=== PATIENT | male | born 1955 | race Caucasian/White ===

== ENCOUNTER 2024-07-13 10:34 | Observation (INO) | payer MEDICARE ==
[2024-07-13 12:05] LABS: Partial Thromboplastin Time 25.6 sec (22.0-30.0); Prothrombin Time 11.1 sec (10.0-12.5)
[2024-07-13 12:08] LABS: HCT 44.7 % (39.0-53.0); HGB 15.4 gm/dL (13.0-17.5); MCH 32.7 pg (25.0-35.0); MCHC 34.4 g/dL (31.0-37.0); Mean Platelet Volume 7.7; Platelet Count 218 k/uL (150-450); RBC 4.71 m/uL (4.30-5.90); RDW 12.6 % (11.5-15.5)
--- NOTE | 2024-07-13 12:14 | XR ---
EXAMINATION TYPE: XR chest 2V DATE OF EXAM: 07/13/2024 11:28 AM COMPARISON: None CLINICAL INDICATION: Male, 69 years old with history of Chest Pain; TECHNIQUE: XR chest 2V Frontal and lateral views of the chest. FINDINGS: Lungs/Pleura: There is no evidence of pleural effusion, focal consolidation, or pneumothorax. Pulmonary vascularity: Unremarkable. Heart/mediastinum: Cardiomediastinal silhouette is unremarkable. Musculoskeletal: No acute osseous pathology. IMPRESSION: No acute cardiopulmonary disease/process. [facility], , 07/13/2024 12:12 PM
[2024-07-13 12:19] LABS: Eosinophils # (M) 0.08 k/uL (0-0.7); Neutrophils # (M) 5.12 k/uL (1.3-7.7); Neutrophils % (M) 64 %; Nucleated Red Blood Cells 0 /100 WBC (0-0); Total Cells Counted 100
[2024-07-13 12:21] LABS: RBC Morphology Normal
[2024-07-13 12:33] LABS: ALT 36 U/L (4-49); African American GFR (CKD) >90 (>60 ml/min/1.73 sqM); Anion Gap 10 mmol/L; Blood Urea Nitrogen 13 mg/dL (9-20); Calcium 9.1 mg/dL (8.4-10.2); Carbon Dioxide 23 mmol/L (22-30); Chloride 103 mmol/L (98-107); Glucose 98 mg/dL (74-99); Non-African American GFR(CKD) 81 (>60 ml/min/1.73 sqM); Sodium 136 mmol/L (137-145); Total Bilirubin 0.9 mg/dL (0.2-1.3)
[2024-07-13 12:41] LABS: NT-Pro-B-Type Natriuretic Pept 28 pg/mL
[2024-07-13 12:45] LABS: Potassium 4.6 mmol/L (3.5-5.1); Total Protein 8.2 g/dL (6.3-8.2)
[2024-07-13 12:46] LABS: AST 41 U/L (17-59); Albumin 4.5 g/dL (3.5-5.0); Alkaline Phosphatase 73 U/L (38-126)
--- NOTE | 2024-07-13 14:54 | CT ---
EXAMINATION TYPE: CT chest angio for PE DATE OF EXAM: 07/13/2024 2:15 PM COMPARISON: Chest radiograph from same day. CLINICAL INDICATION: Male, 69 years old with history of chest pain, elevated d-dimer; Elevated D-dime r and Chest pain TECHNIQUE/CONTRAST: CTA scan of the thorax is performed without and with IV Contrast, patient injected with 100 ml mL of Isovue 300, MIP images are created and reviewed these are created on a separate workstation.. CT DLP: 352.4 mGycm, Automated exposure control for dose reduction was used. FINDINGS: Lungs/Pleura: No evidence of focal consolidation, pleural effusion or pneumothorax. Airway: Large airways are patent. Heart: Heart is within normal limits for size. Atherosclerosis of the arterial vasculature. Vasculature: Multiple filling defects are seen in the motion limited exam particularly in the lung ba ses.e example includes 401 image 88 in the left lower lung and image 111 in the right lung base. Agai n evaluation limited due to phase of contrast and patient respiratory motion. On coronal imaging poss ibly series 402 image 109 on the righte The pulmonary artery is of normal size. Mediastinum: No gross evidence of adenopathy. Musculoskeletal: No acute osseous abnormalities Soft Tissues/lymph nodes: Unremarkable. Lower neck: No significant findings. Upper Abdomen: No significant findings. IMPRESSION: Motion limited exam with bilateral filling defects thought to be present. No evidence of right heart strain. Consider repeat exam. [facility], , 07/13/2024 2:52 PM
[2024-07-13] MEDS ORDERED: HEPARIN SODIUM 1,000 UN/ML (10ML VL) IV PRN (15:21)
[2024-07-13] MEDS ORDERED: NALOXONE 0.4 MG/ML 1 ML VIAL IV PRN (15:21)
--- NOTE | 2024-07-13 15:21 | ED ---
Chest Pain HPI - General Chief Complaint: Chest Pain Stated Complaint: chest pain,cough Time Seen by Provider: 07/13/24 10:58 Source: patient Mode of arrival: ambulatory Limitations: no limitations - History of Present Illness Initial Comments: 69-year-old male with no reported past medical history who presents to the emergency department with pleuritic chest pain. States that he has had the pain for 1 week. It is dull in nature but worse with inspiration. He has had a nonproductive cough. No history of cardiac disease. No history of COPD or asthma. He denies any fevers or chills. He did recently travel home from the [facility] 3 weeks ago. No history of DVT or PE. No calf pain or swelling. He has never had a stress test. He has been on antibiotics for a back abscess but takes no other medications. Denies any abdominal pain. No changes in his bowel or bladder habits. No other alleviating, precipitating modifying factors - Related Data Previous Rx's Medication Instructions Recorded Apixaban [Eliquis Starter Pack 5 - 10 mg PO DIRECTED 30 Days 07/14/24 (for VTE)] #1 each Allergies Allergy/AdvReac Type Severity Reaction Status Date / Time No Known Allergies Allergy Verified 07/13/24 13:08 Review of Systems ROS Statement: Those systems with pertinent positive or pertinent negative responses have been documented in the HPI. ROS Other: All systems not noted in ROS Statement are negative. Past Medical History Past Medical History: No Reported History Past Surgical History: No Surgical Hx Reported Smoking Status: Never smoker General Exam Limitations: no limitations General appearance: alert, in no apparent distress Head exam: Present: atraumatic, normocephalic, normal inspection Eye exam: Present: normal appearance, PERRL, EOMI. Absent: scleral icterus, conjunctival injection, periorbital swelling ENT exam: Present: normal exam, mucous membranes moist Neck exam: Present: normal inspection. Absent: tenderness, meningismus, lymphadenopathy Respiratory exam: Present: normal lung sounds bilaterally. Absent: respiratory distress, wheezes, rales, rhonchi, stridor Cardiovascular Exam: Present: regular rate, normal rhythm, normal heart sounds. Absent: systolic murmur, diastolic murmur, rubs, gallop, clicks GI/Abdominal exam: Present: soft, normal bowel sounds. Absent: distended, tenderness, guarding, rebound, rigid Extremities exam: Present: normal inspection, full ROM, normal capillary refill. Absent: tenderness, pedal edema, joint swelling, calf tenderness Back exam: Present: normal inspection Neurological exam: Present: alert, oriented X3, CN II-XII intact Psychiatric exam: Present: normal affect, normal mood Skin exam: Present: warm, dry, intact, normal color. Absent: rash Course Vital Signs 07/13/24 07/13/24 07/13/24 10:39 13:22 16:04 Temperature 97.3 F L Pulse Rate 83 75 68 Respiratory 16 18 18 Rate Blood Pressure 129/86 140/95 132/81 O2 Sat by Pulse 98 96 99 Oximetry 07/13/24 07/14/24 07/14/24 21:16 01:05 03:24 Temperature Pulse Rate 79 80 67 Respiratory 16 18 18 Rate Blood Pressure 132/81 127/81 O2 Sat by Pulse 96 98 99 Oximetry 07/14/24 07/14/24 07/14/24 05:17 07:21 12:25 Temperature 98.4 F Pulse Rate 87 72 70 Respiratory 18 18 18 Rate Blood Pressure 99/55 129/69 129/75 O2 Sat by Pulse 98 100 98 Oximetry 07/14/24 15:14 Temperature 97.6 F Pulse Rate 64 Respiratory 18 Rate Blood Pressure 129/75 O2 Sat by Pulse 98 Oximetry Chest Pain MDM - MDM Was pt. sent in by a medical professional or institution (NICOLE Morel, WHARF OPERATOR, urgent care, hospital, or halfway...) When possible be specific @ -No Did you speak to anyone other than the patient for history (EMS, parent, family, police, friend...)? What history was obtained from this source @ -No Did you review nursing and triage notes (agree or disagree)? Why? @ -I reviewed and agree with nursing and triage notes Were old charts reviewed (outside hosp., previous admission, EMS record, old EKG, old radiological studies, urgent care reports/EKG's, halfway records)? Report findings @ -No old charts were reviewed Differential Diagnosis (chest pain, altered mental status, abdominal pain women, abdominal pain men, vaginal bleeding, weakness, fever, dyspnea, syncope, headache, dizziness, GI bleed, back pain, seizure, CVA, palpatations, mental health, musculoskeletal)? @ -Differential Chest Pain: Stable Angina, Unstable Angina, STEMI, NSTEMI Aortic Dissection, Pneumothorax, Musculoskeletal, Esophageal Spasm GERD, Cholecystitis, Pancreatitis, Zoster, this is not meant to be an all-inclusive list. EKG interpreted by me (3pts min.). @ -Yes and demonstrates sinus rhythm with a rate of 79. WV interval 165. QRS 102. QTc of 415. No acute ST segment elevations or depressions X-rays interpreted by me (1pt min.). @ -Yes and demonstrates no acute process CT interpreted by me (1pt min.). @ -Yes and demonstrates possible bilateral PEs however contrast timing is poor U/S interpreted by me (1pt. min.). @ -None done What testing was considered but not performed or refused? (CT, X-rays, U/S, labs)? Why? @ -Spoke with the patient about repeating CT scan however he does not want to do this What meds were considered but not given or refused? Why? @ -None Did you discuss the management of the patient with other professionals (professionals i.e. , PA, WHARF OPERATOR, lab, RT, psych nurse, social organization professor, hospitality recruiter, teacher, county health officer, director case)? Give summary @ -Discussed the case with dr cho who accepted the admission Was smoking cessation discussed for >3mins.? @ -No Was critical care preformed (if so, how long)? @ -35 minutes for management of heparin drip Were there social determinants of health that impacted care today? How? (Homelessness, low income, unemployed, alcoholism, drug addiction, transportation, low edu. Level, literacy, decrease access to med. care, custodial, rehab)? @ -No Was there de-escalation of care discussed even if they declined (Discuss DNR or withdrawal of care, Hospice)? DNR status @ -No What co-morbidities impacted this encounter? (DM, HTN, Smoking, COPD, CAD, Cancer, CVA, ARF, Chemo, Hep., AIDS, mental health diagnosis, sleep apnea, morbid obesity)? @ -None Was patient admitted / discharged? Hospital course, mention meds given and route, prescriptions, significant lab abnormalities, going to OR and other pertinent info. @ -Upon arrival patient seen and evaluated in room 20. Thorough history and physical exam was performed. IV was established and laboratory studies are conducted. Chest x-ray was performed. Patient does have elevated D-dimer and therefore I did send the patient for a CT. Demonstrates possible PEs however this is a bad contrast bolus timing. I did discuss the case with the radiologist who feels that there is high concern for PE. I will heparinize the patient and admit for pulmonology consultation. Patient was agreeable to this. Patient admitted to Dr. Cho in stable condition Undiagnosed new problem with uncertain prognosis? @ -No Drug Therapy requiring intensive monitoring for toxicity (Heparin, Nitro, Insulin, Cardizem)? @ -Heparin Were any procedures done? @ -No Diagnosis/symptom? @ -Acute chest pain, possible bilateral PE Acute, or Chronic, or Acute on Chronic? @ -Acute Uncomplicated (without systemic symptoms) or Complicated (systemic symptoms)? @ -Complicated Side effects of treatment? @ -No Exacerbation, Progression, or Severe Exacerbation? @ -No Poses a threat to life or bodily function? How? (Chest pain, [place], [place], pneumonia, PE, COPD, DKA, ARF, appy, cholecystitis, CVA, Diverticulitis, Homicidal, Suicidal, threat to staff... and all critical care pts) @ -Yes as patient possibly has PEs Disposition Clinical Impression: Chest pain, Pulmonary embolism Disposition: ADMITTED IP TO THIS [facility] Condition: Stable Is patient prescribed a controlled substance at d/c from ED?: No Time of Disposition: 15:20 Decision to Admit Reason: Admit from EC Decision Date: 07/13/24 Decision Time: 15:20
[2024-07-13] MEDS: HEPARIN SODIUM 1,000 UN/ML (10ML VL) IV ONE (16:07)
[2024-07-13] MEDS: HEPARIN SOD,PORK IN 0.45% NACL 25,000 UNIT in 0.45% NACL 1 250ML.BAG IV SCH (16:10)
--- NOTE | 2024-07-13 16:54 | US ---
EXAMINATION TYPE: US venous doppler duplex LE DATE OF EXAM: 07/13/2024 4:38 PM COMPARISON: NONE CLINICAL INDICATION: Male, 69 years old with history of suspected pulmonary embolisms; Not on blood t hinners. PE. Recent travel around the world TECHNIQUE: The lower extremity deep venous system is examined utilizing real time linear array sonog sang with graded compression, color doppler sonography, and spectral doppler. SIDE PERFORMED: Bilateral FINDINGS: VESSELS IMAGED: Common Femoral Vein Deep Femoral Vein Greater Saphenous Vein * Femoral Vein Popliteal Vein Small Saphenous Vein * Proximal Calf Veins (* superficial vessels) Right Leg: Negative for DVT, Color Doppler imaging shows patency of the vessels. Spectral waveforms are within normal limits. Left Leg: Negative for DVT, Color Doppler imaging shows patency of the vessels. Spectral waveforms a re within normal limits. IMPRESSION: Bilateral lower extremity ultrasound negative for deep venous thrombosis. [facility], , 07/13/2024 4:52 PM
--- NOTE | 2024-07-13 17:08 | HP ---
HISTORY AND PHYSICAL CHIEF COMPLAINT: Chest discomfort and shortness of breath. 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 The patient apparently had a 24-hour flight and rest included. The patient is complaining of chest discomfort and shortness of breath, especially at night with increasing respiration and the patient had D-dimer elevated to 1.44 and a chest CTA showed bilateral pulmonary embolism. There is no history of any fever, rigors, or chills at this time. PAST MEDICAL HISTORY: No significant cardiovascular illness. MEDICATIONS: None. ALLERGIES: None. FAMILY HISTORY: No history of heart disease or strokes in the family. SOCIAL HISTORY: No history of smoking, or alcohol. REVIEW OF SYSTEMS: A 14-point review of systems is negative except as mentioned earlier. PHYSICAL EXAMINATION: VITAL SIGNS: Pulse is 75, blood pressure 140/94, respirations 18. HEENT: Conjunctivae normal. CARDIOVASCULAR: S1, S2. RESPIRATIONS: A few scattered rhonchi. ABDOMEN: Soft. NERVOUS SYSTEM: Nonfocal. LABORATORY DATA: D-dimer 1.45. Otherwise, other labs noted. ASSESSMENT: 1. Chest pain, possible bilateral pulmonary embolism. 2. Elevated D-dimer. 3. Mild hyponatremia. RECOMMENDATIONS AND DISCUSSION: This is a 69-year-old gentleman, who presented with multiple complex medical issues, we will monitor the patient closely. Continue the current management and continue symptomatic treatment. I would recommend IV heparin and ultrasound of the legs to rule out DVT. Otherwise, IV heparin and pulmonary consultation. I would also recommend anticoagulation. Prognosis guarded. Further recommendations to follow. MMODL / IJN: [id number] /
[2024-07-14 01:35] VITALS: RESP 18
[2024-07-14 04:32] LABS: HCT 41.9 % (39.0-53.0); HGB 13.9 gm/dL (13.0-17.5); MCH 31.8 pg (25.0-35.0); MCHC 33.2 g/dL (31.0-37.0); MCV 95.8 fL (80.0-100.0); Mean Platelet Volume 7.5; Platelet Count 199 k/uL (150-450); RBC 4.38 m/uL (4.30-5.90); RDW 12.7 % (11.5-15.5); WBC 7.1 k/uL (3.8-10.6)
[2024-07-14 04:42] LABS: Eosinophils # (M) 0.43 k/uL (0-0.7); Lymphocytes # (M) 2.56 k/uL (1.0-4.8); Monocytes # (M) 0.28 k/uL (0-1.0); Neutrophils # (M) 3.83 k/uL (1.3-7.7); Neutrophils % (M) 54 %; Nucleated Red Blood Cells 0 /100 WBC (0-0); Total Cells Counted 100
[2024-07-14 05:10] LABS: African American GFR (CKD) 83 (>60 ml/min/1.73 sqM); Anion Gap 6 mmol/L; Blood Urea Nitrogen 15 mg/dL (9-20); Calcium 8.7 mg/dL (8.4-10.2); Carbon Dioxide 24 mmol/L (22-30); Chloride 105 mmol/L (98-107); Glucose 110 mg/dL (74-99); Non-African American GFR(CKD) 72 (>60 ml/min/1.73 sqM); Potassium 4.4 mmol/L (3.5-5.1); Sodium 135 mmol/L (137-145)
[2024-07-14] MEDS: PANTOPRAZOLE 40 MG TABLET PO SCH (07:54)
[2024-07-14 12:31] VITALS: BP 129/75
--- NOTE | 2024-07-14 12:32 | CA ---
Transthoracic Echo Report Name: Raz Cabrrea Age: 69 Gender: M : 1955 Exam Date: 07/14/2024 09:12 Exam Location: [place] [facility] Ht (in): 72 Wt (lb): 175 Ordering Physician: Christian Bruce MD Attending/Referring Phys: Tip Fixer Litzy Mccomrack RDCS Procedure CPT: Indications: stroke Cardiac Hx: Technical Quality: Good Contrast 1: Total Dose (mL): Contrast 2: Total Dose (mL): MEASUREMENTS (Male / Female) Normal Values 2D ECHO LV Diastolic Diameter PLAX 4.3 cm 4.2 - 5.9 / 3.9 - 5.3 cm LV Systolic Diameter PLAX 2.3 cm IVS Diastolic Thickness 1.3 cm 0.6 - 1.0 / 0.6 - 0.9 cm LVPW Diastolic Thickness 1.2 cm 0.6 - 1.0 / 0.6 - 0.9 cm LV Relative Wall Thickness 0.6 RV Internal Dim ED PLAX 2.2 cm LA Systolic Diameter LX 3.9 cm 3.0 - 4.0 / 2.7 - 3.8 cm LV Diastolic Volume MOD BP 52.3 cm??? 67 - 155 / 56 - 104 cm??? LV Systolic Volume MOD BP 22.3 cm??? 22 - 58 / 19 - 49 cm??? LV Ejection Fraction MOD BP 57.4 % >= 55 % LV Cardiac Index MOD BP 1105.9 cm???/min???m??? LV Diastolic Volume MOD 4C 47.9 cm??? LV Systolic Volume MOD 4C 19.0 cm??? LV Ejection Fraction MOD 4C 60.4 % LV Cardiac Index MOD 4C 1065.2 cm???/min???m??? LV Diastolic Length 4C 6.5 cm LV Systolic Length 4C 6.0 cm LV Diastolic Volume MOD 2C 49.5 cm??? LV Systolic Volume MOD 2C 23.9 cm??? LV Ejection Fraction MOD 2C 51.7 % LV Cardiac Index MOD 2C 942.9 cm???/min???m??? LV Diastolic Length 2C 7.6 cm LV Systolic Length 2C 6.7 cm LA Volume 53.7 cm??? 18 - 58 / 22 - 52 cm??? LA Volume Index 26.7 cm???/m??? 16 - 28 cm???/m??? M-MODE Aortic Root Diameter MM 2.8 cm LA Systolic Diameter MM 2.8 cm LA Ao Ratio MM 1.0 AV Cusp Separation MM 1.9 cm DOPPLER AI Peak Velocity 372.7 cm/s AI Peak Gradient 55.6 mmHg AI Pressure Half Time 857.2 ms MV Area PHT 2.9 cm??? Mitral E Point Velocity 72.1 cm/s Mitral A Point Velocity 75.5 cm/s Mitral E to A Ratio 1.0 MV Deceleration Time 261.7 ms TR Peak Velocity 187.1 cm/s TR Peak Gradient 14.0 mmHg FINDINGS Left Ventricle Left ventricular ejection fraction is estimated at 60-65 %. Mildly increased septal wall thickness. Left ventricular cavity size normal. No obvious regional wall motion abnormalities. Right Ventricle Normal right ventricular size and function. Right ventricular systolic pressure within normal limits. Right Atrium Mild right atrial dilatation. Left Atrium Mild left atrial dilatation. Mitral Valve Myxomatous (redundant) mitral valve. [id number] mitral regurgitation. No mitral stenosis. Aortic Valve Trileaflet aortic valve. No aortic stenosis. Mild aortic regurgitation. Tricuspid Valve Structurally normal tricuspid valve. Mild tricuspid regurgitation. No tricuspid stenosis. Pulmonic Valve Structurally normal pulmonic valve. Trace pulmonic regurgitation. No pulmonic stenosis. Pericardium No pericardial or pleural effusion. Aorta Normal size aortic root and proximal ascending aorta. CONCLUSIONS Normal biventricular systolic function Mild to moderate mitral regurgitation Mild aortic insufficiency No pericardial effusion Previewed by: Dr. Emery Kennedy MD (Electronically Signed) Final Date: 14 July 2024 12:31
--- NOTE | 2024-07-14 13:07 | P.CNPUL ---
History of Present Illness Consult date: 07/14/24 Requesting physician: Christian Bruce Reason for consult: dyspnea, abnormal CXR/CT Chief complaint: Shortness of breath History of present illness: This is a very pleasant 69-year-old male patient with no significant past medical history. Not on any home medications. He had recently traveled to the [facility] for approximately 1 month and returned 3 weeks ago. He did develop an abscess on his back requiring antibiotics into separate occasions but had been feeling better. About 1 week ago he started having issues with shortness of breath and some chest discomfort. He presented here to the emergency room yesterday for the same. Chest x-ray showed no acute pulmonary process. Possible bilateral filling defects. No evidence of right heart strain. Repeat exam recommended. He was initiated on a heparin drip. He is seen today in consultation in the emergency department. He is currently sitting up on the stretcher. Awake and alert in no acute distress. Maintaining good O2 satura tions in the 90s on room air. White count 7.1. Hemoglobin 13.9. Platelets 199. Sodium 134. Potassium 4.4. Bicarb 24. BUN 15. Creatinine 1.05. Glucose 110. Troponins were negative x 3. Viral screen was negative. Review of Systems REVIEW OF SYSTEMS: CONSTITUTIONAL: Denies any recent significant weight loss or weight gain. EYES: Denies change in vision. EARS, NOSE, MOUTH, THROAT: Denies headaches, denies sore throat. CARDIOVASCULAR: Positive for chest pain, no palpitations or syncopal episodes. RESPIRATORY: Positive for shortness of breath, cough, congestion no hemoptysis. GASTROINTESTINAL: Denies change in appetite, denies abdominal pain GENITOURINARY: Denies hematuria, denies infections. MUSKULOSKELETAL: Denies pain, denies swelling. INTEGUMENTARY: Denies rash, denies eczema. NEUROLOGICAL: Denies recent memory loss, no recent seizure activity. PSYCHIATRIC: Denies anxiety, denies depression. HEMATOLOGIC/LYMPHATIC: Denies anemia, denies enlarged lymph nodes. Past Medical History Past Medical History: No Reported History Past Surgical History: No Surgical Hx Reported Smoking Status: Never smoker Medications and Allergies Home Medications Medication Instructions Recorded Confirmed Type Apixaban [Eliquis Starter Pack 5 - 10 mg PO DIRECTED 30 Days 07/14/24 Rx (for VTE)] #1 each Allergies Allergy/AdvReac Type Severity Reaction Status Date / Time No Known Allergies Allergy Verified 07/13/24 13:08 Physical Exam Vitals: Vital Signs Temp Pulse Resp BP Pulse Ox 07/14/24 12:25 70 18 129/75 98 07/14/24 07:21 98.4 F 72 18 129/69 100 07/14/24 05:17 87 18 99/55 98 07/14/24 03:24 67 18 99 07/14/24 01:05 80 18 127/81 98 07/13/24 21:16 79 16 132/81 96 07/13/24 16:04 68 18 132/81 99 07/13/24 13:22 75 18 140/95 96 Intake and Output 07/13/24 07/14/24 07/14/24 22:59 06:59 14:59 Intake Total 87.157 144.58 Balance 87.157 144.58 Intake: Intake, IV Titration 87.157 144.58 Amount Heparin Sod,Pork in 0.45% 87.157 144.58 NaCl 25,000 unit In 0.45 % NaCl 1 250ml.bag @ 18 UNITS/KG/HR 14.288 mls/hr IV .[id number] [facility] Rx#: [id number] GENERAL EXAM: Alert, very pleasant 69-year-old male, on room air, comfortable in no apparent distress. HEAD: Normocephalic. EYES: Normal reaction of pupils, equal size. NOSE: Clear with pink turbinates. THROAT: No erythema or exudates. NECK: No masses, no JVD. CHEST: No chest wall deformity. LUNGS: Equal air entry with no crackles, wheeze, rhonchi or dullness. CVS: S1 and S2 normal with no audible murmur, regular rhythm. ABDOMEN: No hepatosplenomegaly, normal bowel sounds, no guarding or rigidity. SPINE: No scoliosis or deformity SKIN: No rashes CENTRAL NERVOUS SYSTEM: No focal deficits, tone is normal in all 4 extremities. EXTREMITIES: There is no peripheral edema. No clubbing, no cyanosis. Peripheral pulses are intact. Results - Laboratory Findings CBC and BMP: 07/14/24 03:53 07/14/24 03:53 PT/INR, D-dimer PT 11.1 sec (10.0-12.5) 07/13/24 11:45 INR 1.0 (<1.2) 07/13/24 11:45 D-Dimer 1.44 mg/L FEU (<0.60) H 07/13/24 11:45 Abnormal lab findings: Abnormal Labs 07/13/24 07/13/24 07/13/24 11:45 11:45 21:15 APTT 86.9 H D-Dimer 1.44 H Sodium 136 L Glucose 07/14/24 07/14/24 03:53 03:53 APTT 77.6 H D-Dimer Sodium 135 L Glucose 110 H - Diagnostic Findings Chest x-ray: image reviewed CT scan - chest: image reviewed Assessment and Plan Assessment: Shortness of breath and chest pain secondary to probable subsegmental pulmonary embolism. CT angiogram had motion artifact and was recommended repeating the study. He is currently on a heparin drip. He had traveled back from the [facility] approximately 3 weeks ago. Venous Doppler of the lower extremities were negative for DVT. Echocardiogram revealed no evidence of right heart strain Boil/abscess on the right upper aspect of his back, completed antibiotics x 2 rounds Plan: The patient was seen and evaluated Imaging, labs and medications reviewed Negative doppler of the lower extremities Recommend repeating the CT angiogram The patient is somewhat reluctant If he declines then recommend 6 months of a factor Xa inhibitor I have personally seen and examined the patient, performed the documentation and the assessment and plan as written. Number of minutes spent on the visit: 20 Dictation was produced using [employer] dictation software. Please excuse any grammatical, word or spelling errors.
[2024-07-14 15:26] VITALS: PULSE 64; TEMP 97.6
--- NOTE | 2024-07-14 19:34 | P.CONS ---
History of Present Illness - Reason for Consult Consult date: 07/14/24 PE Requesting physician: Christian Bruce - Chief Complaint chest pain - History of Present Illness Patient is a 69-year-old male who presented the emergency room with chest pain. Consult was placed for PE. Patient reports he had recent travel back from the [facility] with multiple 4-hour flights. He reports he began to experience pleuritic chest pain that was worsened upon inspiration. On admission chest x- ray showed no acute cardiopulmonary processes. D-dimer elevated at 1.44. CTA chest was subsequently obtained showing motion limited exam with bilateral filli ng defects thought to be present. With no evidence of right heart strain. Heparin drip was started. Bilateral lower extremity Dopplers were negative for DVT. Labs reviewed, coags WNL. Troponins negative. Viral panel negative. WBC 7.1, hemoglobin 13.9, platelets 199,000. Creatinine 0.95, GFR greater than 90. Patient denies personal history and family history of blood clots. Denies history of autoimmune disorders, steroid use, and hormone use. Patient has not had cancer screenings in the past with PSA or colonoscopy. Denies blood in stool and melena. Review of Systems 10 point ROS is negative except as stated in the HPI Past Medical History Past Medical History: No Reported History Past Surgical History: No Surgical Hx Reported Smoking Status: Never smoker Medications and Allergies Home Medications Medication Instructions Recorded Confirmed Type Apixaban [Eliquis Starter Pack 5 - 10 mg PO DIRECTED 30 Days 07/14/24 Rx (for VTE)] #1 each Allergies Allergy/AdvReac Type Severity Reaction Status Date / Time No Known Allergies Allergy Verified 07/13/24 13:08 Physical Exam Vitals: Vital Signs Temp Pulse Resp BP Pulse Ox 07/14/24 07:21 98.4 F 72 18 129/69 100 07/14/24 05:17 87 18 99/55 98 07/14/24 03:24 67 18 99 07/14/24 01:05 80 18 127/81 98 07/13/24 21:16 79 16 132/81 96 07/13/24 16:04 68 18 132/81 99 07/13/24 13:22 75 18 140/95 96 07/13/24 10:39 97.3 F L 83 16 129/86 98 Intake and Output 07/13/24 07/14/24 07/14/24 22:59 06:59 14:59 Intake Total 87.157 Balance 87.157 Intake: Intake, IV Titration 87.157 Amount Heparin Sod,Pork in 0.45% 87.157 NaCl 25,000 unit In 0.45 % NaCl 1 250ml.bag @ 18 UNITS/KG/HR 14.288 mls/hr IV .[id number] COUNTS INCLUDE 234 BEDS AT THE [facility] Rx#: [id number] - Constitutional General appearance: average body habitus, no acute distress - EENT Eyes: anicteric sclerae, EOMI ENT: hearing grossly normal - Respiratory Respiratory: bilateral: CTA - Cardiovascular Rhythm: regular - Gastrointestinal General gastrointestinal: soft, no tenderness - Integumentary Integumentary: no cyanotic, no jaundiced - Neurologic Neurologic: CNII-XII intact - Musculoskeletal Musculoskeletal: strength equal bilaterally - Psychiatric Psychiatric: A&O x's 3 Results CBC & Chem 7: 07/14/24 03:53 07/14/24 03:53 Labs: Abnormal Lab Results - Last 24 Hours (Table) 07/13/24 07/13/24 07/13/24 Range/Units 11:45 11:45 21:15 APTT 86.9 H (22.0-30.0) sec D-Dimer 1.44 H (<0.60) mg/L FEU Sodium 136 L (137-145) mmol/L Glucose (74-99) mg/dL 07/14/24 07/14/24 Range/Units 03:53 03:53 APTT 77.6 H (22.0-30.0) sec D-Dimer (<0.60) mg/L FEU Sodium 135 L (137-145) mmol/L Glucose 110 H (74-99) mg/dL Chest x-ray: report reviewed CT scan - chest: report reviewed Venous US: report reviewed Assessment and Plan (1) Chest pain Status: Acute Priority: Medium Code(s): R07.9 - CHEST PAIN, UNSPECIFIED SNOMED Code(s): 16618400 (2) Pulmonary embolism Status: Acute Priority: High Code(s): I26.99 - OTHER PULMONARY EMBOLISM WITHOUT ACUTE COR PULMONALE SNOMED Code(s): 34833568 Plan: PE: Presented the emergency room with chest pain. Patient reports he had recent travel back from the [facility] with multiple 4-hour flights and began to experience pleuritic chest pain that was worsened upon inspiration. Denies personal history and family history of blood clots. Denies history of autoimmune disorders, steroid use, and hormone use. Patient has not had cancer screenings in the past with PSA or colonoscopy. -On admission chest x-ray showed no acute cardiopulmonary processes. D-dimer elevated at 1.44. CTA chest was subsequently obtained showing motion limited exam with bilateral filling defects thought to be present. With no evidence of right heart strain. -Heparin drip was started. -Bilateral lower extremity Dopplers were negative for DVT. -Coags WNL. Troponins negative. Viral panel negative -Pulmonary consulted. Repeat CTA ordered, but pt apprehensive regarding being rescanned, despite discussed reasoning and recommendations -Appears to be provoked clot from recent travel. Recommend minimum 6 months anticoagulation -Will schedule clinic f/u t provide further AC recommendations -Once no further procedures/interventions are planned, pt can be transitioned to Eliquis. Case management consulted for prior auth. Eliquis Erx sent to [facility] PSA ordered. Recommended outpt screening colonoscopy Case discussed with admitting and pulmonary teams Doctor attests: I performed a history and physical examination of this patient, developed impression and plan of care. Discussed with dictator. I agree with dictators note, documented as a scribe.
--- NOTE | 2024-07-18 11:41 | P.DS ---
Providers Date of admission: 07/13/24 15:23 Expected date of discharge: 07/14/24 Attending physician: Christian Bruce Consults: 07/13/24 15:21 Consult Physician Urgent Consulting Provider: Juana Martínez Consult Reason/Comments: pleuritic chest pain, suspected bilateral pulmonary embolisms Do you want consulting provider notified?: Yes 07/13/24 15:26 Consult Physician Routine Consulting Provider: hCristiano Scott Consult Reason/Comments: pe Do you want consulting provider notified?: Yes Primary care physician: Stated None Hospital Course: Final diagnosis Chest pain, possible bilateral pulmonary embolism, per CT difficult to exclude although recommend repeat CT. Patient is refusing at this time Elevated D-dimer Mild hyponatremia GI prophylaxis DVT prophylaxis Full code Discharge disposition Patient is being discharged in a stable condition with guarded prognosis to home. Patient will follow-up with Dr. Crispin Bruce in the outpatient setting upon discharge. Patient is to continue with Eliquis 10 mg twice daily for 1 week and then transition down to 5 mg twice daily thereafter and outpatient follow-up with pulmonary as scheduled. Total time taken is greater than 35 minutes. Hospital course This is a 69-year-old male who was recently admitted with chest pain with recent travel with concerns of bilateral pulmonary embolism. Initial CT suggestive of embolism although artifact and difficult to exclude recommending repeat. Repeat testing was ordered although patient reports would like to go home and does not want further testing and was initially on heparin and is being transition to Eliquis. Patient will require 6 months anticoagulation with close outpatient follow-up. Patient has been cleared by pulmonary for outpatient follow-up. Patient also instructed to follow-up and establish with primary care provider. Please refer to other consultation notes for further HPI. Currently no reports of chest pain, shortness of breath, or palpitations. Patient is afebrile. No reports of nausea or vomiting and patient is tolerating diet. Patient will be discharged home today. Guarded prognosis. Physical exam: Gen: This is a 69-year-old male who is awake, alert and oriented x 3, well- developed, well-nourished, elderly appearing HEENT: Head is atraumatic, normocephalic. Pupils equal, round. Sclerae is anicteric. NECK: Supple. No JVD. No lymphadenopathy. No thyromegaly. LUNGS: Clear to auscultation. No wheezes or rhonchi. No intercostal retractions. HEART: S1, S2 are muffled ABDOMEN: Soft. Bowel sounds are present. No masses. No tenderness. EXTREMITIES: No pedal edema. No calf tenderness. NEUROLOGICAL: Patient is awake, alert and oriented x3. Cranial nerves 2 through 12 are grossly intact. Please refer to medication reconciliation sheet for a list of medications. The impression and plan of care has been dictated by Gianna Becerril, Nurse Practitioner as directed. Dr. Teo MD I have performed a history and examination and MDM of this patient, discussed the same with the dictator, and agree with the dictator's assessment and plan as written ,documented as a scribe. Based on total visit time, I have performed more than 50% of the visit. Patient Condition at Discharge: Stable Plan - Discharge Summary New Discharge Prescriptions: New Apixaban [Eliquis Starter Pack (for VTE)] 5 - 10 mg PO DIRECTED 30 Days #1 each Discharge Medication List Apixaban [Eliquis Starter Pack (for VTE)] 5 - 10 mg PO DIRECTED 30 Days #1 each 07/14/24 [Rx] Follow up Appointment(s)/Referral(s): Leia Olivares MD [STAFF PHYSICIAN] - 1 Week Juana Martínez MD [STAFF PHYSICIAN] - 1 Week Patient Instructions/Handouts: Pulmonary Embolism (DC) Activity/Diet/Wound Care/Special Instructions: Activity limited until follow-up Follow-up with primary care provider to establish Continue taking Eliquis 10 mg twice daily for the next 1 week and then titrate down to 5 mg twice daily thereafter Recommend outpatient follow-up with pulmonary for repeat imaging in the outpatient setting Discharge/Stand Alone Forms: [facility] Area PCPs Discharge Disposition: HOME SELF-CARE
== END 2024-07-14 15:14 | disposition home or self-care (01) ==
LOC: EC 10:34 → 3SCARD 15:23
PROVIDERS: ADMIT Hospitalist; ATTEND Hospitalist
DX: I26.99 Other pulmonary embolism without acute cor pulmonale (principal); E87.1 Hypo-osmolality and hyponatremia; L02.212 Cutaneous abscess of back [any part, except buttock and flank]; Z79.2 Long term (current) use of antibiotics
CPT/HCPCS: 99285; 36415; 93005; 93306; 85379; 84154; 84153; 83880; 80053; 80048; 83735; 84484; 85025 ×2; 85610; 85730 ×2; 87636; 71046; 93970; 71275; G0378 ×2; J1644 ×3; Q9967